=== PATIENT | female | born 1985 | race Caucasian/White ===

== ENCOUNTER 2017-04-10 02:56 | Emergency (ER) | payer MEDICAID ==
[~2017-04-10] VITALS: Ht 160 cm; Wt 60.3 kg
[2017-04-10 03:15] VITALS: BP 149/93
[2017-04-10] MEDS ORDERED: LORAZEPAM 1 MG TABLET PO ONE (04:00)
[2017-04-10] MEDS ORDERED: LORAZEPAM 1 MG TABLET ONE ×2 (04:01→04:06)
[2017-04-10] MEDS ORDERED: IBUPROFEN 600 MG TABLET PO ONE ×2 (04:48→05:00)
== END 2017-04-10 04:54 | disposition home or self-care (01) ==
LOC: ER 02:56
DX: R07.89 Other chest pain (principal); F41.9 Anxiety disorder, unspecified
CPT/HCPCS: 93005; 99284; A4606; Z7610